=== PATIENT | female | born 1965 | race Caucasian/White ===

== ENCOUNTER → 2025-01-24 11:54 | Outpatient (BNVA) | payer OTHER, SELFPAY | PROVIDERS: PCP Nurse Practitioner Family; Visit Provider Orthopaedic Surgery | DX: M25.551 Pain in right hip (principal); M16.11 Unilateral primary osteoarthritis, right hip | CPT/HCPCS: 73502; 99204 ==

== ENCOUNTER 2025-02-06 13:04 | Outpatient (CLI) | payer OTHER, SELFPAY ==
--- NOTE | 2025-02-06 13:07 | MR_ITS ---
WS: [id number] EXAMINATION: MR hip RT wo con* [id number] ORDER DATE: 02/06/2025 1:22 PM COMPARISON: None. HISTORY: RIGHT HIP PAIN CONTRAST: None. TECHNIQUE: Coronal STIR of the Pelvis. Coronal proton density, coronal T1, axial T2 fat sat, axial T1, sagittal T2 fat sat, and sagittal T1 performed of the hip. After contrast, axial T1 fat sat, coronal T1 fat sat, and sagittal T1 fat sat were performed. FINDINGS: Prior postoperative changes LEFT JIMMIE. Advanced arthritis RIGHT hip with subchondral cystic change and edema worse in the superolateral femoral head. [id number]-pu-[id number] articulation. Edema within the acetabulum extending into the ilium. Small areas of osteonecrosis involving the superolateral femoral head. Small joint effusion. Normal bone marrow signal in the femoral neck and proximal femoral shaft. Hypertrophic changes along the joint line. Normal visualized RIGHT pubic rami. MR/MR hip RT wo con* [id number] IMPRESSION: 1. Advanced arthritis RIGHT hip with surt-el-nece articulation. Associated sub chondral cystic change and edema within the superolateral femoral head and acet abulum. 2. Small serpiginous areas of osteonecrosis in the superior lateral femoral he ad. Moderate edema in the underlying acetabulum extending into the ilium. 3. Small joint effusion. 4. Prior postoperative changes LEFT JIMMIE.
== END 2025-02-06 13:05 | disposition home or self-care (01) ==
PROVIDERS: PCP Nurse Practitioner Family; Visit Provider Nurse Practitioner Family
DX: M16.11 Unilateral primary osteoarthritis, right hip (principal); R93.7 Abnormal findings on diagnostic imaging of other parts of musculoskeletal system; M87.88 Other osteonecrosis, other site; M25.451 Effusion, right hip; Z98.890 Other specified postprocedural states; Z96.89 Presence of other specified functional implants
CPT/HCPCS: 73721

== ENCOUNTER 2025-02-13 11:51 | Observation (INO) | payer OTHER, SELFPAY ==
[2025-02-13] VITALS (16 sets, daily range): BP systolic 90–159; BP diastolic 59–96; PULSE 50–91; RESP 15–22; TEMP 36.2–36.8; O2SAT 95–100; BMI 19.5
--- NOTE | 2025-02-13 08:26 | ANES.PREANE2 ---
Pre-Anesthetic Assessment Height/Weight: Height 5 ft 4 in Preop Diagnosis: Hip arthritis Operation Date: 02/13/25 09:15 Proposed Procedures p RIGHT Total Hip Arthroplasty(Right) - Marcin Cordero MD Was Beta Yaa taken within 24 hours: N/A Was Clonidine taken within 24 hours: N/A Social Tobacco and No alcohol Exam alert, oriented x 3 and regular rate & rhythm Decreased breath sounds bilaterally Airway Submandibular: within normal limits Cervical ROM: within normal limits Mallampati: Class II Comments: Comments: Upper dentures, no bottom teeth Anesthetic Plan ASA status: 3 Anesthesia: MAC and Regional (specify below) Other: No prior issues with anesthesia NPO since yesterday evening Patient comes from with lab from the MD in January. Hemoglobin 15.4 at that time. All other labs WNL Current smoker, COPD Denies hypertension, preop BP 148/69 Plan for spinal anesthesia Medications/Allergies Home Medications ?Medication ?Instructions ?Recorded ?Confirmed ?Last Taken ?Type buspirone 5 mg tablet 10 mg PO TID 02/12/25 02/12/25 02/12/25 History citalopram 10 mg tablet 10 mg PO DAILY 02/12/25 02/12/25 02/12/25 History B-complex with vitamin C 1 tab PO DAILY 02/13/25 02/13/25 Unknown History cyclobenzaprine 5 mg tablet 5 - 10 mg PO BEDTIME 02/13/25 02/13/25 Unknown History Allergies Allergy/AdvReac Type Severity Reaction Status Date / Time No Known Allergies Allergy Unverified 02/12/25 10:56 [facility], [facility] Anesthesia Social History Smoking and tobacco/nicotine status: current every day tobacco/nicotine user
[2025-02-13] MEDS: sodium chloride 0.9% 1,000 ML 30 ML IV (08:30)
--- NOTE | 2025-02-13 09:42 | W.PM.OPSUD ---
Surgery/Procedure H&P Update DATE OF PROCEDURE: February 13, 2025 DATE H&P PERFORMED: 01/24/25 H&P UPDATE INFORMATION: I have reviewed H&P completed within last 30 days, I have examined patient prior to procedure, No changes to prior documentation and Risks and benefits of the procedure reviewed PREOP DIAGNOSIS: Hip arthritis PLANNED PROCEDURE: Operation Date: 02/13/25 09:15 Proposed Procedures p RIGHT Total Hip Arthroplasty(Right) - Marcin Cordero MD
[2025-02-13] MEDS: ceFAZolin 2,000 mg SDV 2000 MG IVP ×2 (09:44→17:24)
[2025-02-13] MEDS: tranexamic acid 1,000 mg/10mL SDV 1000 MG IV (10:15)
--- NOTE | 2025-02-13 11:09 | XR_ITS ---
WS: [id number] XR hip RT 1V wo/w pel [id number] REASON FOR EXAM: Right total hip arthroplasty FINDINGS: Total right hip arthroplasty. Components of the arthroplasty are intact and in proper position and alignment. No significant focal bone abnormality. XR/XR hip RT 1V wo/w pel [id number] IMPRESSION: Total right hip arthroplasty without abnormality.
--- NOTE | 2025-02-13 12:01 | ANE.PACU2 ---
Inpatient post-anesthesia follow up: Airway intact: Yes Vital signs: Temperature 97.6 F Pulse Rate 83 Respiratory Rate 16 Blood Pressure 138/78 Pulse Oximetry 96 Oxygen Delivery Me thod Room Air Oxygen Flow Rate 2 Fraction of Inspir ed Oxygen Hydration adequate: Yes Nausea and vomiting: No Pain level: 1 Mental status: Baseline
[2025-02-13] MEDS: lactated ringers 1,000 ML 100 ML IV (13:27)
[2025-02-13] MEDS: chlorhexidine gluconate 0.12% Btl 473 mL 30 ML MUCOUS MEM ×3 (13:27→21:07)
[2025-02-13] MEDS: acetaminophen 500 mg Tablet 1000 MG PO ×2 (13:27→21:08)
--- NOTE | 2025-02-13 14:00 | P.OP_ITS ---
Operative Report Date of procedure: February 13, 2025 Surgeon: Marcin Cordero MD Procedure: Preoperative diagnosis: End-stage degenerative joint disease of the right hip Postoperative diagnosis: Same Procedure: Right total hip arthroplasty Surgeon: Marcin Cordero MD Dairy Associate: BILLIE Acosta's assistance was necessary throughout the entire procedure. She was necessary for positioning the patient assistance during the procedure, wound closure, dressings and transported the patient back to the PACU Anesthesia: Spinal EBL: 100 cc Indications: Darlyn is a 59-year-old white female was seen in the orthopedic clinics for debilitating right hip pain. She has tried to go as far as she could before needing to have a hip replacement. She has previously had a left total hip in the past. X-rays that she brought in from an outside clinic demonstrated distraction of the superior edge of the femoral head with cystic changes as well as deformity of the superior portion acetabulum also with osteophytes and subchondral cyst. Patient has failed all conservative measures therefore at this time was offered to total hip arthroplasty. All risk, benefits, and treatment alternatives were discussed the patient is willing proceed with surgical intervention at this time. Procedure: After obtaining her consent patient taken to the operating room placed table supine position and subsequently spinal anesthetic administered. Once good anesthesia was achieved patient placed up in lateral decubitus position with right hip up. She was held in place with a pegboard. Padded appropriately. Right hip and leg were prepped and draped in usual fashion. After surgical timeout hip was flexed at 90 degrees and minimally invasive direct lateral approach to the hip was done. Sharp dissect taken on down the subcutaneous tissues electrocautery used for hemostasis. Dissection was taken down to the proximal portion of the greater trochanter and IT band was divided longitudinally along the course of the incision incision was expanded at this point both proximal and distal for better exposure. Dissection was done through the gluteal muscles along the course of the fibers. Deep retractor placed leg was internally rotated. Electrocautery was used to dissect along the posterior edge of the greater trochanter down to the femoral neck. Piriformis was raised off the greater trochanter. Capsule was opened up in a T-type fashion. And leg was internally rotated to 90 degrees dislocating the hip at this point. Gross deformity of the femoral head was noted at this time. Proximal femur was templated and femoral cut was made with a sagittal saw. Neck and ball cut were removed en bloc. Appropriate retractors were placed to expose the acetabulum. Using # #10 blade labrum of the acetabulum was sharply removed. Subsequently starting a size 45 reamer reaming was done by a 2 mm increments up until a size 51 reamer had been used in getting full coverage of the acetabulum. Good bleeding bone was identified all coker of the acetabulum. Trial 51 cup was placed and found to fit quite well. This was removed permanent size 52 cup was placed with appropriate anteversion and vertical tilt and impacted. Good fixa tion was achieved. 20 degree high wall liner was positioned and placed within the cup in appropriate position and locked in place. Attention was then turned towards the proximal femur. Appropriate retractors placed a box cut osteotome was used to make an entry point. Hand reaming then broaching of the proximal femur was done. It started at a 0 and 1 out by 1 mm increments until size 5 broach was found to be adequate fit and fill. This is then removed the areas washed with copious nonsterile irrigation. Permanent size 5 porous ingrowth femoral component was placed with appropriate anteversion and impacted. Trial 36 mm head with standard neck was placed on this and reduced foot to range of motion found to be stable. Leg lengths appear to be equal and therefore the hip was dislocated area washed with sterile irrigation. A permanent size 36 ceramic head with a standard neck length was then placed on the Humphreys taper of the femoral component and impacted. Hip was reduced and put through range of motion found to be stable. Leg bump between the knees. Leg was slightly internally rotated capsule was repaired with #1 Vicryl [id number] sutures. Piriformis were repaired back to the greater trochanter with #5 Ethibond [id number]-[id number] suture with through bone tunnels. Areas washed again with sterile irrigation. Deep fascial structure reapproximated with #1 Vicryl as well as 0 Vicryl. Subcutaneous is reapproximated 0 Vicryl interrupted sutures. Skin was closed with subcuticular sutures. Occlusive dressing was placed over this. Patient was then placed back on her hospital bed with an abduction pillow between her legs and awakened. Patient was transferred to the recovery room stable condition
[2025-02-13] MEDS: BuSPIRONE 10 mg Tablet PO ×2 (14:22→21:08)
[2025-02-13] MEDS: morphine 4 mg/mL SDV 1 mL 2 MG IVP ×2 (14:22→18:36)
[2025-02-13] MEDS: HYDROcodone-acetaminophen 5-325 mg Tablet 1 TAB PO ×2 (16:39→21:08)
[2025-02-13] MEDS: sennosides-docusate Tablet 2 TAB PO (17:24)
[2025-02-13] MEDS: calcium carbonate 500 mg Chew Tablet 1000 MG PO (17:24)
[2025-02-13] MEDS: iron polysaccharide complex 150 mg Capsule PO (17:24)
[2025-02-13] MEDS: mupirocin oint 22 gm 1 APPLIC NASAL (17:25)
[2025-02-14] VITALS: BP 156/76; PULSE 68; RESP 16; TEMP 36.9; O2SAT 97
[2025-02-14] MEDS: lactated ringers 1,000 ML 100 ML IV (00:24)
[2025-02-14] MEDS: ceFAZolin 2,000 mg SDV 2000 MG IVP (00:24)
[2025-02-14] MEDS: HYDROcodone-acetaminophen 5-325 mg Tablet 1 TAB PO ×4 (00:31→13:40)
[2025-02-14 00:42] VITALS: RESP 16
[2025-02-14] MEDS: morphine 4 mg/mL SDV 1 mL 2 MG IVP (00:42)
[2025-02-14 04:00] VITALS: BP 144/67; PULSE 74; RESP 18; TEMP 36.8; O2SAT 96
--- NOTE | 2025-02-14 06:42 | PC.NURSE ---
patients iv went bad at 0600. dr wetzel notified and he okayed to leavve it out. patient is going home today
[2025-02-14 07:50] VITALS: BP 152/75; PULSE 80; RESP 16; TEMP 36.9; O2SAT 95
[2025-02-14] MEDS: citalopram 20 mg Tablet 10 MG PO (09:19)
[2025-02-14] MEDS: calcium carbonate 500 mg Chew Tablet 1000 MG PO (09:19)
[2025-02-14] MEDS: cholecalciferol (vitamin D3) 1,000 unit Tablet 1000 UNIT PO (09:20)
[2025-02-14] MEDS: multivitamin therapeutic Tablet 1 TAB PO (09:20)
[2025-02-14] MEDS: aspirin 325 mg EC Tablet PO (09:20)
[2025-02-14] MEDS: BuSPIRONE 10 mg Tablet PO (09:20)
[2025-02-14] MEDS: iron polysaccharide complex 150 mg Capsule PO (09:20)
[2025-02-14] MEDS: sennosides-docusate Tablet 2 TAB PO (09:23)
[2025-02-14 11:58] VITALS: BP 134/68; PULSE 92; RESP 18; TEMP 36.8; O2SAT 96
[2025-02-14] MEDS: acetaminophen 500 mg Tablet 1000 MG PO (13:39)
--- NOTE | 2025-02-14 14:11 | PM.DCS ---
Discharge Providers Date of Admission: 02/13/25 11:51 Date of Discharge: February 14, 2025 Attending Provider at Admission: Marcin Cordero MD Attending Provider at Discharge: Marcin Cordero MD Primary Care Provider: María Diaz APRN Diagnoses at Discharge Discharge Diagnosis (1) S/P total hip arthroplasty: Details from hospital stay: Patient has tolerated procedure and physical therapy postoperatively very well Status: Acute Qualifiers: Laterality: right Qualified Code(s): Z96.641 - Presence of right artificial hip joint Reason for Visit Reason for Visit: M25.51 Brief History: Patient with end-stage degenerative joint disease of the right hip in need of total hip arthroplasty. Hospital Course Hospital Course Patient was admitted on 02/13/2025 and underwent the above-stated procedure. Tolerated this very well. By postop day 1 #1 was up and ambulatory with physical therapy on a walker. She is full weightbearing on the side. Doing very well Physical Exam Narrative: On exam today she is up to a chair dressing is clear neurovascular intact distal right leg. Hip flex nearly to 90 degrees in a comfortable position. Urinary Catheter Management: Jennings: Cath Placed During This Visit: yes, but has since been removed by the nurse Reason for Continuing Indwelling Catheter: Other Urinary Catheter Date of Insertion: 02/13/25 Urinary Catheter Time of Insertion: 09:54 Date Urinary Catheter Removed: 02/14/25 Time Urinary Catheter Discontinued: 07:23 Discharge Data Studies Completed and Pending Completed Studies During Hospitalization Category Date Time Status XR hip RT 1V wo/w pel [id number] Routine Exams 02/13/25 11:09 Completed Pending at discharge Category Date Time Status Basic Metabolic Panel AM LABS Lab 02/14/25 04:00 Uncollected Complete Blood Count w/Auto AM LABS Lab 02/14/25 04:00 Uncollected Complete Blood Count w/Auto AM LABS Lab 02/15/25 04:00 Uncollected Complete Blood Count w/Auto AM LABS Lab 02/16/25 04:00 Uncollected Radiology Impressions Hip X-Ray 02/13/25 11:09 IMPRESSION: Total right hip arthroplasty without abnormality. Procedures Performed Right total hip arthroplasty Vitals Last Vital Signs Temp 98.2 F 02/14/25 11:58 Pulse 92 02/14/25 11:58 Resp 18 02/14/25 11:58 BP 134/68 02/14/25 11:58 Pulse Ox 96 02/14/25 11:58 O2 Del Method Room Air 02/14/25 11:58 O2 Flow Rate 2 02/13/25 11:57 Discharge Plan Discharge Patient Disposition: Home Health Service Condition: Stable Prescriptions: New hydrocodone-acetaminophen 5-325 mg tablet 1 tab PO Q6H PRN (Reason: pain) Qty: 30 0RF Continued buspirone 5 mg tablet 10 mg PO TID citalopram 10 mg tablet 10 mg PO DAILY B-complex with vitamin C Tablet 1 tab PO DAILY cyclobenzaprine 5 mg tablet 5 - 10 mg PO BEDTIME Discharge Orders: Discharge Order (Routine); Ordered 02/14/25 Ordered By: Marcin Cordero Other Ambulatory Orders: DME: Dilshad (Order) Location: None Selected Ordered By: Marcin Cordero Referrals: [facility] [Outside] Marcin Cordero MD [Physician, Orthopedics] - 03/06/25 9:30 am Discharge Diet: Advance as tolerated Discharge Activity: Increase activity as tolerated and Limit activity as instructed Patient Instructions: Acute Wound Care (DC), Opioid Safety, Post Anesthesia Care Activity Restrictions/Additional Instructions: Continue with hip precautions. Use abduction pillow when in bed Trying to straighten right leg is much as possible at all times, or as much as possible Follow-up outpatient physical therapy as instructions Keep wound covered to shower Aspirin 325 mg p.o. daily for 6 weeks Discharge Attestations Time Spent in Discharge Care*: less than 30 min Quality Metrics Clinical Quality Measures [ No reported AMI, CVA or VTE this stay] Coding Level of Care Code Acute Code for Chg Fwd Diagnoses Status post total replacement of right hip Z96.641 Laterality: right
[2025-02-14 15:07] VITALS: BP 134/68; PULSE 92; RESP 16; TEMP 36.8; O2SAT 96
== END 2025-02-14 14:45 | disposition home health service (06) ==
LOC: MEDSURG 11:52
PROVIDERS: Admitting Provider Orthopaedic Surgery; PCP Nurse Practitioner Family; Visit Provider Orthopaedic Surgery
PROC: (CPT 27130; principal; 2025-02-13 09:15)
DX: M16.11 Unilateral primary osteoarthritis, right hip (principal); J44.9 Chronic obstructive pulmonary disease, unspecified; F17.200 Nicotine dependence, unspecified, uncomplicated
CPT/HCPCS: 27130; 51702; 73501; 97110; 97116; 97161; 97165; C1776; G0378; J0690; J2250; J2270; J2371; J2704; J7030; J7120; J9999

== ENCOUNTER → 2025-03-06 09:35 | Outpatient (BNVA) | payer OTHER, SELFPAY | PROVIDERS: PCP Nurse Practitioner Family; Visit Provider Orthopaedic Surgery | DX: Z96.641 Presence of right artificial hip joint (principal) | CPT/HCPCS: 73502; 99024 ==

== ENCOUNTER → 2025-05-22 14:02 | Outpatient (BNVA) | payer OTHER, SELFPAY | PROVIDERS: PCP Nurse Practitioner Family; Visit Provider Orthopaedic Surgery | DX: Z96.641 Presence of right artificial hip joint (principal) | CPT/HCPCS: 73502; 99024 ==

== ENCOUNTER → 2025-08-25 15:02 | Outpatient (BNVA) | payer OTHER, SELFPAY | PROVIDERS: PCP Nurse Practitioner Family; Visit Provider Orthopaedic Surgery | DX: Z96.641 Presence of right artificial hip joint (principal) | CPT/HCPCS: 73502; 99213 ==